=== PATIENT | female | born 1985 | race Caucasian/White ===

== ENCOUNTER → 2019-10-19 | Outpatient (CLI) | payer OTHER ==
--- NOTE | 2019-10-20 15:31 | US ---
EXAM DESCRIPTION: 3D Diagnostic, Bilateral (accession [id number]), Breast,Bilateral (accession [id number]): Ultrasound CLINICAL HISTORY: 34 yearsFemaleLEFT BREAST LUMP . Bilateral under the breast at the chest wall, larger on the left. Remote family history of breast and ovarian cancer. Menarche age 12, childbirth age 18. No HRT. Premenopausal Lifetime risk of developing breast cancer (Tyrer-Cuzick model)(%): 7.5. COMPARISON: Baseline study at this facility with no prior reports. TECHNIQUE: Bilateral LM, CC, and MLO projection full-field images, digital tomosynthesis technique. Bilateral 2-D digital full-field images: LM, CC, and MLO projections. CAD available for 2-D images.. Transcutaneous scanning of the bilateral breasts at the region of interest utilizing bland-scale and Doppler modes. Scanning performed by the refueling ramp attendant ; observation by Dr. Schultz. FINDINGS: The breast parenchymal density pattern is: Scattered areas of fibroglandular density. No skin thickening or nipple retraction bilateral solitary parenchymal and skin calcifications. No mammographic abnormalities at the regions of interest bilaterally. No new focal, stellate mass or density, focal asymmetry , and no suspicious microcalcifications bilaterally. Ultrasound: Scanning bilateral breasts at the region of interest, junction of inferior breast and chest wall. No dominant solid mass. No distinct cyst. No parenchymal fluid collection. No large calcifications. No overlying skin changes. IMPRESSION: Benign exam. BIRAD CATEGORY: 2 BENIGN FINDINGS. RECOMMENDATIONS: FOLLOW UP: Routine digital bilateral mammographic screening, beginning at age 40. The region of interest should be followed on clinical grounds, and if noted to change in size or character, a targeted/directed follow-up on US examination may be performed. Written communication explaining the IMPRESSION and follow-up, will be mailed to the patient and referring health care provider. The FINDINGS and the FOLLOW-UP plan were reviewed in person with the patient after the examination. According to the [employer], yearly mammograms are recommended starting at age 40 and continuing as long as a woman is in good health. Any breast change noted on a breast self-exam should be reported promptly to the patient's healthcare provider. Breast MRI is recommended for women with an approximately 20-25% or greater lifetime risk of breast cancer, including women with a strong family history of breast or ovarian cancer and women who have been treated for Hodgkin's disease. A negative mammographic report should not delay tissue diagnosis in patients with significant clinical history or physical findings. Extremely dense breast tissue limits the sensitivity of digital mammography. Electronically signed by: Vincent Schultz MD 10/20/2019 3:30 PM CDT
== END ==
LOC: MAMMO 11:16
PROVIDERS: ATTEND Family Medicine
DX: N63.20 Unspecified lump in the left breast, unspecified quadrant (principal)
CPT/HCPCS: 76641; 77066; G0279

== ENCOUNTER → 2020-04-26 | Outpatient (CLI) | payer BC | LOC: RESP 10:57 | PROVIDERS: ATTEND Nurse Practitioner Family | DX: I49.3 Ventricular premature depolarization (principal) ==